=== PATIENT | male | born 2000 | race Caucasian/White ===

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

== ENCOUNTER 2022-11-13 12:50 | Emergency (ER) | payer OTHER ==
[2022-11-13 13:03] VITALS: TEMP 98.2; BMI 22.8
[2022-11-13] MEDS ORDERED: clonazePAM 0.5 MG TABLET PO ONE (13:15)
[2022-11-13] MEDS ORDERED: SERTRALINE HCL 50 MG TABLET (FP) PO ONE (13:15)
[2022-11-13] MEDS ORDERED: clonazePAM 0.5 MG TABLET ONE (13:19)
[2022-11-13 13:27] VITALS: BP 117/82; PULSE 83; RESP 18
== END 2022-11-13 13:55 | disposition home or self-care (01) ==
LOC: FER 12:50
DX: R06.02 Shortness of breath (principal); R00.2 Palpitations; R20.2 Paresthesia of skin; F41.9 Anxiety disorder, unspecified
CPT/HCPCS: 71046-TC-FY; 93005; 99284-25